=== PATIENT | female | born 1955 | race African-American/Black ===

== ENCOUNTER 2016-10-31 10:03 | Emergency (ER) | payer MEDICAID ==
[~2016-10-31] VITALS: Ht 157.5 cm; Wt 96.2 kg
[2016-10-31 10:10] VITALS: BP 139/67
--- NOTE | 2016-10-31 10:10 | Emergency Room Report ---
History of Present Illness General Chief Complaint: Head Injury Source: Patient Present Illness HPI Patient's 60-year-old female who presented after reportedly being struck to the head by a large piece of ceiling material. The patient reportedly had increased pain to her head as well as her neck. She reported also having some low back pain. Patient had no loss of consciousness. She had not been vomiting. Injury occurred just prior to arrival.The patient was brought in by EMS in cervical collar. Allergies: Coded Allergies: No Known Allergies (Unverified , 10/31/16) Patient History Past Medical History: see triage record Reviewed Nursing Documentation: PMH: Agreed, PSxH: Agreed Nursing Documentation-PMH Hx Hypertension: Yes Hx Diabetes: Yes Review of Systems All Other Systems: negative except mentioned in HPI Physical Exam Vital Signs Date Time Temp Pulse Resp B/P Pulse Ox O2 Delivery O2 Flow Rate FiO2 10/31/16 09:56 98.1 86 18 129/64 97 Room Air Sp02 EP Interpretation: reviewed, normal General Appearance: normal inspection, well appearing, no apparent distress, alert Head: atraumatic ENT: normal ENT inspection, hearing grossly normal, normal voice Neck: normal inspection, full range of motion, supple, no bony tend Respiratory: normal inspection, lungs clear, normal breath sounds, no respiratory distress, no retraction, no wheezing Cardiovascular #1: regular rate, rhythm, no edema Gastrointestinal: normal inspection, normal bowel sounds, non tender, soft, no guarding, no hernia Genitourinary: no CVA tenderness Musculoskeletal: normal inspection, back normal, normal range of motion Neurologic: normal inspection, alert, oriented x3, responsive, 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 Differential diagnosis included was not limited to skull fracture, intracranial hemorrhage, neck fracture among others.Because of complexity of patient's case laboratory testing and imaging studies were ordered.CT imaging of the head read by radiologist showed no acute fracture or intracranial hemorrhage. CT cervical spine read by radiologist showed a 2 mm thyroid nodule there is no evident fracture there is straightening of cervical lordosis. CT read by radiology show degenerative changes without evident fracture. The patient is given prescription for muscle relaxants. As she is advised to ice injured areas. As she is advised followup with her primary care physician in the next one to 2 days for recheck. Last Vital Signs Date Time Temp Pulse Resp B/P Pulse Ox O2 Delivery O2 Flow Rate FiO2 10/31/16 09:56 98.1 86 18 129/64 97 Room Air Status: improved Disposition: HOME, SELF-CARE Condition: Stable Scripts Diazepam* (VALIUM*) 5 Mg Tablet 5 MG ORAL TID Y for For Pain, #15 TAB 0 Refills Prov: Tu Ruffin 10/31/16 Tu Ruffin Oct 31, 2016 10:10
[2016-10-31 10:57] VITALS: BP 152/92
--- NOTE | 2016-10-31 11:06 | Diagnostic Imaging Report ---
Indication: Head pain Technique: Continuous helical CT scanning of the head was performed utilizing automated exposure control without intravenous contrast material. Axial and coronal reconstructions were obtained. Comparison: None CT dose: Total DLP 1478 mGycm; CTDI vol 70.4 mGy Findings: There is no acute intracranial hemorrhage, mass effect or cortical edema. The ventricles, cisterns and sulci are within normal limits. The posterior fossa and fourth ventricle are unremarkable. Sellar and suprasellar regions are grossly unremarkable. Visualized mastoid air cells and paranasal sinuses are unremarkable. No focal lesions of the bony calvarium or soft tissues of the scalp are seen. Impression: No evidence of acute intracranial hemorrhage, mass effect or cortical edema. No skull fracture. The CT scanner at [facility] is accredited by the [employer] and the scans are performed using protocols designed to limit radiation exposure to as low as reasonably achievable to attain images of sufficient resolution adequate for diagnostic evaluation.
--- NOTE | 2016-10-31 11:10 | Diagnostic Imaging Report ---
Indication: Neck pain Technique: CT cervical spine was performed utilizing automated exposure control without intravenous contrast material. Axial and coronal images were generated. CT dose: Total DLP 528 mGycm; CTDI vol 26.6 mGy Comparison: None Findings: There is no acute fracture. There is straightening of the cervical lordosis. Cervical alignment is otherwise within normal limits. Degenerative endplate osteophytes are demonstrated throughout the cervical spine. Posterior disc osteophyte complexes are seen at the C4/C5, C5/C6, C6-C7 and C7/T1 levels with varying degrees of central canal stenosis. Multilevel uncovertebral spurring is also noted with neuroforaminal stenosis which is severe involving the left C4/C5 level and involving other levels to a lesser degree. Prevertebral soft tissues are within normal limits. A left thyroid hypodense nodule measures 2 cm. The visualized lung apices are clear. Impression: Evaluation limited by artifact. No acute fracture. Straightening of the cervical lordosis may suggest a spasm or may be related to positioning. Clinical correlation recommended. Degenerative cervical spondylosis with multilevel central canal and neuroforaminal stenosis. Further evaluation recommended as indicated. Left thyroid nodule. Correlation with ultrasound recommended as indicated. The CT scanner at [facility] is accredited by the [employer] and the scans are performed using protocols designed to limit radiation exposure to as low as reasonably achievable to attain images of sufficient resolution adequate for diagnostic evaluation.
[2016-10-31] MEDS ORDERED: VALIUM5 MG ORAL (12:12)
[2016-10-31 13:04] VITALS: BP 122/59
--- NOTE | 2016-11-02 08:40 | Diagnostic Imaging Report ---
Indication: Back pain Technique: CT lumbar was performed utilizing automated exposure control without intravenous contrast material. Axial and coronal images were generated. CT dose: Total DLP 782 mGycm; CTDI vol 26.4 mGy Comparison: None Findings: There is no acute fracture. The lumbar alignment is within normal limits. Predominantly anterior osteophytes/syndesmophytes are demonstrated of the lumbar spine. The lumbar disc spaces are grossly within normal limits. Mild degenerative facet changes are present. The paravertebral soft tissues are grossly unremarkable. Colonic diverticulosis is present. Atherosclerotic changes are seen. There is a nonobstructive calculus in the right kidney. Impression: No acute fracture or lumbar malalignment. Mild degenerative lumbar spondylosis. Other findings described above. The CT scanner at [facility] is accredited by the [employer] and the scans are performed using protocols designed to limit radiation exposure to as low as reasonably achievable to attain images of sufficient resolution adequate for diagnostic evaluation.
== END 2016-10-31 13:07 | disposition home or self-care (01) ==
LOC: EDBD 10:03 → EMR 10:14
DX: S09.90XA Unspecified injury of head, initial encounter (principal); E04.1 Nontoxic single thyroid nodule; S16.1XXA Strain of muscle, fascia and tendon at neck level, initial encounter; S39.012A Strain of muscle, fascia and tendon of lower back, initial encounter; I10 Essential (primary) hypertension; E11.9 Type 2 diabetes mellitus without complications; W20.8XXA Other cause of strike by thrown, projected or falling object, initial encounter; Y92.9 Unspecified place or not applicable
CPT/HCPCS: 70450; 72125; 72131; 99284